=== PATIENT | male | born 1945 | race Caucasian/White ===

== ENCOUNTER 2020-12-14 05:38 | Day surgery (SDC) | payer MEDICARE, OTHER ==
[2020-12-11 09:30] VITALS: BMI 27.1
[2020-12-14] MEDS ORDERED: MIDAZOLAM HCL 2 MG/2 ML SINGLE DOSE VIAL ONE (08:59)
[2020-12-14] MEDS ORDERED: ONDANSETRON 4 MG/2 ML VIAL IVPUSH PRN (09:30)
[2020-12-14] MEDS ORDERED: ACETAMINOPHEN 325 MG TABLET (FP) PO PRN (09:30)
[2020-12-14] MEDS ORDERED: LACTATED RINGERS SOLUTION 1,000 ML IV SCH (09:30)
[2020-12-14 12:01] VITALS: BP 137/69; PULSE 50; TEMP 98.2
== END 2020-12-14 10:40 | disposition home or self-care (01) ==
LOC: JASU-SURG 05:38
PROVIDERS: ATTEND Urology
PROC: 0TF3XZZ Fragmentation in Right Kidney Pelvis, External Approach (ICD-10-PCS; principal; 2020-12-14 09:00)
DX: N20.0 Calculus of kidney (principal)